=== PATIENT | female | born 1960 | race Caucasian/White ===

== ENCOUNTER 2018-08-09 10:26 | Day surgery (SDC) | payer BC ==
[~2018-08-09 10:26] MED LIST: Lactated Ringers 1,000 ML IV SCH; Midazolam 1 MG/ML 2 ML SDV ONE; Propofol 200 MG/20 ML SDV ONE; Sodium Chloride 0.9% 10 ML Syringe FLUSH PRN
[2018-08-09] MEDS ORDERED: Midazolam 1 MG/ML 2 ML SDV ONE (11:39)
[2018-08-09] MEDS ORDERED: Propofol 200 MG/20 ML SDV ONE (11:39)
--- NOTE | 2018-08-09 11:43 | PCM.HPR ---
H & P Addendum review - H & P Addendum Review Date of Original H & P: 08/01/18 Date Reviewed: 08/09/18 Time Reviewed: 11:43 Patient was Examined: No Changes
--- NOTE | 2018-08-09 12:06 | PCM.OPNOTE ---
- General Post-Op/Procedure Note Date of Surgery/Procedure: 08/09/18 Operative Procedure(s): Colonoscopy Findings: Normal Pre Op Diagnosis: Change in Bowel habits, Heme pos Post-Op Diagnosis: Same Anesthesia Technique: MAC Primary Surgeon: Jethro Buchanan Anesthesia Provider: Clarissa Valdivia Complications: None Condition: Good
[2018-08-09 14:45] VITALS: BP 133/83
--- NOTE | 2018-08-14 14:46 | OR ---
Date of Procedure: 08/09/2018 PREOPERATIVE DIAGNOSES: 1. Change in bowel habits. 2. Hemoccult-positive stool. POSTOPERATIVE DIAGNOSIS: Normal colonoscopy. PROCEDURE: Colonoscopy. ANESTHESIA: IV sedation. DESCRIPTION OF PROCEDURE: The patient was brought to the procedure room where she was placed on her left side and IV sedation administered. Digital rectal exam was performed which was normal. Colonoscope was inserted and advanced to the level of the cecum. Cecal position was confirmed by identifying the appendiceal lumen and the ileocecal valve. Prep was good and surfaces were well visualized. Upon withdrawing the scope, the ascending, transverse, and descending colon were normal in appearance. Sigmoid colon and rectum were normal. Retroflexion was normal. Air was removed and the scope withdrawn. The patient tolerated the procedure well and returned to recovery in stable condition. Recommend routine colon screening again in 10 years. DENZEL DINERO MD /[id number]
== END 2018-08-09 12:50 | disposition home or self-care (01) ==
LOC: LL.SDS 10:26
PROVIDERS: ATTEND Surgery
DX: R19.4 Change in bowel habit (principal); R19.5 Other fecal abnormalities; F41.9 Anxiety disorder, unspecified; F32.9 Major depressive disorder, single episode, unspecified; Z88.8 Allergy status to other drugs, medicaments and biological substances; Z79.899 Other long term (current) drug therapy
CPT/HCPCS: J2250; J2704; J7120